=== PATIENT | female | born 1935 | race African-American/Black ===

== ENCOUNTER 2020-12-24 17:14 | Inpatient (IN) | payer MEDICARE ==
[~2020-12-24] VITALS: Ht 167.6 cm; Wt 64.0 kg
[~2020-12-24 17:14] MED LIST: CHOL20004 PO; HYDR12.54 PO; OMEP20CA4 PO
[2020-12-24 18:05] LABS: BASOPHILS % 0.4 % (0.0-2.0); HEMATOCRIT. 37.6 % (36.0-48.0); HEMOGLOBIN. 12.7 g/dL (12.0-16.0); LYMPHOCYTES % 12.4 % (20.0-50.0); MEAN CORPUSCULAR HEMOGLOBIN 28.2 pg (28.0-32.0); MEAN CORPUSCULAR VOLUME 83.2 fL (81.0-99.0); MEAN PLATELET VOLUME 7.5 fl (7.4-10.4); MONOCYTES % 9.8 % (2.0-8.0); NEUTROPHILS % 77.4 % (40.0-76.0); PLATELET 189 x1000/uL (130-400); RED BLOOD CELL COUNT 4.52 mill/uL (4.2-5.4); RED CELL DISTRIBUTION WIDTH 12.5 % (11.6-14.6)
[2020-12-24 18:14] LABS: CHLORIDE 95 mEq/L (98-107)
[2020-12-24 18:17] LABS: ETHANOL BLOOD < 10 mg/dL
[2020-12-24 18:23] LABS: CREATINE KINASE 101 IU/L (26-192)
[2020-12-24 18:45] LABS: CLARITY URINE CLEAR (CLEAR); COLOR URINE YELLOW (YELLOW); KETONES URINE NEGATIVE (NEGATIVE); LEUKOCYTE ESTERASE URINE NEGATIVE (NEGATIVE); NITRITE URINE NEGATIVE (NEGATIVE); OCCULT BLOOD URINE NEGATIVE (NEGATIVE); PH URINE 6.5 (4.5-8.0); PROTEIN URINE TRACE (NEGATIVE); UROBILINOGEN URINE 0.2 E.U./dL (0.2-1.0)
[2020-12-24 18:56] LABS: *BARBITURATES SCREEN URINE NEGATIVE (NEGATIVE); *BENZODIAZEPINES SCREEN URINE NEGATIVE (NEGATIVE); *COCAINE SCREEN URINE NEGATIVE (NEGATIVE)
[2020-12-24 18:57] LABS: CANNABINOID URINE SCREEN NEGATIVE (NEGATIVE); METHADONE URINE SCREEN NEGATIVE (NEGATIVE); OPIATES URINE SCREEN NEGATIVE (NEGATIVE); PHENCYCLIDINE URINE SCREEN NEGATIVE (NEGATIVE)
[2020-12-24 18:59] LABS: *AMPHETAMINES SCREEN URINE NEGATIVE (NEGATIVE)
[2020-12-24] MEDS ORDERED: DOXYCYCLINE HYCLATE 100 MG/VIAL IV ONE (21:45)
[2020-12-24] MEDS ORDERED: DOXYCYCLINE 100MG in DEXTROSE 5% WATER 100ML IV NR (22:00)
[2020-12-25 09:50] VITALS: BP 127/82
== END 2020-12-25 09:50 | disposition short-term general hospital (02) | DRG 177 ==
LOC: ER 17:14 → MICUSO 23:35
DX: U07.1 COVID-19 (principal); J12.82 Pneumonia due to coronavirus disease 2019; F03.90 Unspecified dementia, unspecified severity, without behavioral disturbance, psychotic disturbance, mood disturbance, and anxiety; I10 Essential (primary) hypertension; Z79.899 Other long term (current) drug therapy; R62.7 Adult failure to thrive; Z68.22 Body mass index [BMI] 22.0-22.9, adult; R53.1 Weakness
CPT/HCPCS: 36415; 71045; 80053; 80305; 80320; 81003; 82550; 83605; 84484; 85025; 87426; 87635; 93005; 99285; J3490; J7060; G0480

== ENCOUNTER 2025-08-07 22:39 | Emergency (ER) | payer MEDICARE ==
[~2025-08-07] VITALS: Ht 170.2 cm; Wt 57.0 kg
[2025-08-07 22:59] VITALS: TEMP 36.8
[2025-08-07] MEDS: LIDOCAINE HCL 1% 20ML VIAL INFIL ONE (23:43)
[2025-08-07] MEDS: TETANUS, DIPHTHERIA, PERTUSSIS VAC/PF 0.5ML (>10YR OLD) IM ONE (23:45)
[2025-08-08 00:35] LABS: BASOPHILS % 0.3 % (0.0-2.0); EOSINOPHILS % 0.0 % (0.0-5.0); HEMATOCRIT. 40.4 % (36.0-48.0); HEMOGLOBIN. 13.1 g/dL (12.0-16.0); LYMPHOCYTES % 39.3 % (20.0-50.0); MEAN PLATELET VOLUME 7.4 fl (7.4-10.4); MONOCYTES % 10.1 % (2.0-8.0); NEUTROPHILS % 50.3 % (40.0-76.0); PLATELET 230 x1000/uL (130-400); RED BLOOD CELL COUNT 4.73 mill/uL (4.2-5.4); RED CELL DISTRIBUTION WIDTH 15.3 % (11.6-14.6)
[2025-08-08 00:45] LABS: CREATININE 0.8 mg/dL (0.6-1.0); UREA NITROGEN BLOOD 6 mg/dL (9-23)
[2025-08-08 00:47] LABS: ASPARTATE AMINOTRANSFERASE 29 IU/L (<34)
[2025-08-08 00:48] LABS: BILIRUBIN TOTAL 0.4 mg/dL (0.1-1.0); PROTEIN TOTAL 7.6 g/dL (6.0-8.3)
[2025-08-08] MEDS ORDERED: TOPUD MT (01:28)
[2025-08-08] MEDS: ACETAMINOPHEN 500MG TABLET PO ONE (01:54)
[2025-08-08 01:56] VITALS: BP 160/103; PULSE 103; RESP 12; O2SAT 99
== END 2025-08-08 01:58 | disposition home or self-care (01) ==
LOC: ER 22:39
DX: S01.81XA Laceration without foreign body of other part of head, initial encounter (principal); I10 Essential (primary) hypertension; Z79.899 Other long term (current) drug therapy; W01.0XXA Fall on same level from slipping, tripping and stumbling without subsequent striking against object, initial encounter; Y93.89 Activity, other specified; Y92.89 Other specified places as the place of occurrence of the external cause; Y99.8 Other external cause status
CPT/HCPCS: 99284; 36415; 90715; 12002; 90471; 93005; 70450; 80053; 85025; 72125; J2003